=== PATIENT | male | born 1965 | race Native Hawaiian/Other Pacific Islander ===

== ENCOUNTER 2017-05-25 07:36 | Day surgery (SDC) | payer OTHER ==
[2017-05-25] MEDS ORDERED: IV NORMAL SALINE 1000 ML BAG IV ONE (07:37)
[2017-05-25] MEDS ORDERED: CEFAZOLIN 1 G VIAL MC ONE (07:37)
[2017-05-25] MEDS ORDERED: SEVOFLURANE 250 ML BOTTLE IH ONE (07:37)
[2017-05-25] MEDS ORDERED: DEXAMETHASONE SOD PHOSPHATE 4 MG INJ IV ONE (07:37)
[2017-05-25] MEDS ORDERED: ONDANSETRON 4 MG/2 ML VIAL IV ONE (07:37)
[2017-05-25] MEDS ORDERED: LIDOCAINE HCL 2% 20 ML VIAL MC ONE (07:37)
[2017-05-25] MEDS ORDERED: BUPIVACAINE 0.25% 30 ML VIAL ONE (08:17)
[2017-05-25] MEDS ORDERED: HYDROCODONE/APAP 7.5-325MG TABLET ONE (11:55)
== END 2017-05-25 12:40 | disposition home or self-care (01) ==
LOC: DS 07:36
PROVIDERS: ATTEND Orthopaedic Surgery
DX: M23.222 Derangement of posterior horn of medial meniscus due to old tear or injury, left knee (principal); S83.92XA Sprain of unspecified site of left knee, initial encounter; X58.XXXA Exposure to other specified factors, initial encounter; Y93.9 Activity, unspecified; Y92.89 Other specified places as the place of occurrence of the external cause; Y99.9 Unspecified external cause status; M22.42 Chondromalacia patellae, left knee; I10 Essential (primary) hypertension; J45.909 Unspecified asthma, uncomplicated; Z86.010 Personal history of colon polyps; Z98.890 Other specified postprocedural states
CPT/HCPCS: A4663; J0690; J1100; J2405; J3490; J7030